=== PATIENT | female | born 1995 | race Caucasian/White ===

== ENCOUNTER 2024-06-19 14:19 | Inpatient (IN) | payer OTHER ==
[~2024-06-19 14:19] MED LIST: AUGMENTIN 875-1 EACH PO; NORCO 5-325 TA1 EACH PO; TUMS200 MG PO
[2024-06-19] MEDS ORDERED: MAGNESIUM HYDROXIDE/AL HYDROX 30 ML CUP PO PRN ×2 (15:00→19:15)
[2024-06-19] MEDS ORDERED: LACTATED RINGER'S 1,000 ML IV PRN (15:00)
[2024-06-19] MEDS ORDERED: CALCIUM CARBONATE 500 MG CHEW PO PRN ×2 (15:00→19:15)
[2024-06-19 15:01] LABS: HEMOGLOBIN 13.2 g/dL (12.0-18.0); MCH 29.3 (27-36); MCHC 34.7 g/dl (30-36); MCV 84.4 fl (81-99); RBC 4.5 M/ul (4.3-5.7)
[2024-06-19 15:26] LABS: AMPHETAMINES, URINE NEGATIVE (NEGATIVE); BARBITURATES, URINE NEGATIVE (NEGATIVE); BENZODIAZEPINE, URINE NEGATIVE (NEGATIVE); BUPRENORPHINE, URINE NEGATIVE (NEGATIVE); CANNABINOID, URINE NEGATIVE (NEGATIVE); COCAINE, URINE NEGATIVE (NEGATIVE); ECSTASY, URINE NEGATIVE (NEGATIVE); FENTANYL, URINE NEGATIVE (NEGATIVE); METHADONE, URINE NEGATIVE (NEGATIVE); OPIATES, URINE NEGATIVE (NEGATIVE); OXYCODONE, URINE NEGATIVE (NEGATIVE); PHENCYCLIDINE, URINE NEGATIVE (NEGATIVE)
[2024-06-19 15:37] LABS: ABO A; ANTIBODY SCREEN NEGATIVE; RH POSITIVE
[2024-06-19] MEDS ORDERED: ROPIVACAINE 0.2% 200 ML BAG ONE (16:24)
[2024-06-19] MEDS ORDERED: OXYTOCIN/0.9 % SODIUM CHLORIDE 30 UNITS/500 ML BAG IV SCH (16:30)
[2024-06-19] MEDS ORDERED: ondansetron HCL 4 MG/2 ML VIAL ONE (17:00)
[2024-06-19] MEDS ORDERED: LACTATED RINGER'S 500 ML IV PRN (17:15)
[2024-06-19] MEDS ORDERED: ROPIVACAINE 0.2% 200 ML BAG EPIDURAL SCH (17:15)
[2024-06-19] MEDS ORDERED: ePHEDrine sulfate 5 MG/ML SYRINGE IV PRN (17:15)
[2024-06-19] MEDS ORDERED: LACTATED RINGER'S 2,000 ML IV ONE (17:15)
[2024-06-19] MEDS ORDERED: OXYCODONE/APAP 5/325 TAB PO PRN (19:15)
[2024-06-19] MEDS ORDERED: OXYTOCIN/0.9 % SODIUM CHLORIDE 500 ML IV SCH (19:15)
[2024-06-19] MEDS ORDERED: MAGNESIUM HYDROXIDE 30 ML UDC PO PRN (19:15)
[2024-06-19] MEDS ORDERED: IBUPROFEN 600 MG TAB PO PRN (19:15)
[2024-06-19] MEDS ORDERED: BENZOCAINE 60 ML AEROSOL TOP PRN (19:15)
[2024-06-19] MEDS ORDERED: WITCH HAZEL/GLYCERIN 1 EA PAD TOP PRN (19:15)
[2024-06-19] MEDS ORDERED: HYDROCODONE/ACETA 5/325 TAB PO PRN (19:15)
[2024-06-19] MEDS ORDERED: ACETAMINOPHEN 325 MG TAB PO PRN (19:15)
[2024-06-19] MEDS ORDERED: HYDROCORTISONE ACETATE 25 MG SUPP PR PRN (19:15)
[2024-06-19] MEDS ORDERED: SENNOSIDES/DOCUSATE 1 EA TAB PO SCH (21:00)
[2024-06-20 05:25] LABS: HEMATOCRIT 32.9 % (35.0-50.0); HEMOGLOBIN 11.4 g/dL (12.0-18.0); MCH 29.4 (27-36); MCHC 34.6 g/dl (30-36); MCV 85.1 fl (81-99); RBC 3.87 M/ul (4.3-5.7); RDW 13.7 (10.5-15.0)
--- NOTE | 2024-06-20 15:34 | PR ---
[facility] [address] [facility] [place], [place] [address] Signed PP Progress Notes Datetime Report Generated by CPN: 06/20/2024 15:34 SUBJECTIVE: [id number] Pain: Within Normal Limits Nausea/Vomiting: Denies Flatus: Yes Bowel Movement: No Vital Signs: [id number] Vital Signs: Reviewed; Within Normal Limits EXAM: Met Cardiovascular: Normal Respiratory: Normal Abdomen/Uterus: Normal Lochia: Normal Vulva/Perineum: Not Done Breasts: Not Done CVA Tenderness: Normal Extremities: Normal Incision: Not Applicable Progress: Normal Exam Comments: Fundus firm U-2 nontender IMPRESSION/PLAN/PROCEDURES: [id number] Impression: Normal Progression Plan: Discharge Progress Notes: Pt seen and examined. Doing well and no concerns. Ambulating, voiding, and tolerating full diet. Pain and lochia minimal. . No fevers/chills. Desires d/c home. Reviewed d/c medications and instructions in detail. All questions answered. F/U 2 / 6 wk pp visits. Signing Physician: Silvio Ahuja DO Copies: ~ *Electronically Signed* 06/20/24 [id number] SILVIO AHUJA (DIO) DO PATIENT NAME: DEIRDRE TORO PROGRESS NOTE DATE OF : [birth year] PHYSICIAN: SILVIO AHUJA (JD) DO RPT #: [id number] REPORT IS CONFIDENTIAL AND NOT TO BE RELEASED WITHOUT AUTHORIZATION
== END 2024-06-20 19:56 | disposition home or self-care (01) | DRG 807 ==
LOC: FBCO 14:19 → FBC 14:35
PROVIDERS: ADMIT Obstetrics & Gynecology; ATTEND Obstetrics & Gynecology
PROC: 10E0XZZ Delivery of Products of Conception, External Approach (ICD-10-PCS; principal; 2024-06-19)
PROC: 3E0R3BZ Introduction of Anesthetic Agent into Spinal Canal, Percutaneous Approach (ICD-10-PCS; 2024-06-19)
PROC: 00HU33Z Insertion of Infusion Device into Spinal Canal, Percutaneous Approach (ICD-10-PCS; 2024-06-19)
DX: O24.420 Gestational diabetes mellitus in childbirth, diet controlled (principal); Z37.0 Single live birth; Z3A.38 38 weeks gestation of pregnancy; O69.81X0 Labor and delivery complicated by cord around neck, without compression, not applicable or unspecified; Z88.1 Allergy status to other antibiotic agents; Z88.2 Allergy status to sulfonamides; Z88.8 Allergy status to other drugs, medicaments and biological substances; Z90.89 Acquired absence of other organs; Z98.890 Other specified postprocedural states; Z79.899 Other long term (current) drug therapy
CPT/HCPCS: 36415; 80307; 85027; 86850; 86900; 86901; A9270; J2405; J2795; J7121